=== PATIENT | female | born 2000 | race Caucasian/White ===

== ENCOUNTER 2021-08-30 00:12 | Emergency (ER) | payer BC, OTHER ==
[2021-08-30 01:12] LABS: HEMOGLOBIN 12.1 gm/dl (12.3-15.3); RED BLOOD COUNT 4.52 M/UL (4.00-5.10); WHITE BLOOD COUNT 7.5 K/UL (4.5-11.0)
[2021-08-30 01:35] LABS: BUN/CREATININE RATIO 17 (0-10)
== END 2021-08-30 03:08 | disposition left against medical advice (07) ==
LOC: ER1 00:12
PROVIDERS: Emergency Medicine
DX: R07.9 Chest pain, unspecified (principal); J02.9 Acute pharyngitis, unspecified
CPT/HCPCS: 80053; 82550; 82553; 84484; 85025; 93005; 99281